=== PATIENT | male | born 1985 | race Caucasian/White ===

== ENCOUNTER 2021-02-14 14:15 | Emergency (ER) | payer BC ==
[2021-02-14] MEDS ORDERED: Diphtheria,Pertussis(Acell),Tetanus Vaccine 0.5 ML Syringe IM ONE (14:47)
--- NOTE | 2021-02-14 14:49 | EDM.PDOC ---
ED HPI GENERAL MEDICAL PROBLEM - General Chief Complaint: Laceration Stated Complaint: L INDEX FINGER LAC Time Seen by Provider: 02/14/21 14:38 Source of Information: Reports: Patient, RN Notes Reviewed History Limitations: Reports: No Limitations - History of Present Illness INITIAL COMMENTS - FREE TEXT/NARRATIVE: Patient is a 35-year-old male who presents to the ER for his left index finger laceration. States that he was using a hunting knife, and ended up lacerating the posterior aspect of the patient's left index PIP with the tip of his knife. This resulted in a roughly 5 mm laceration, that is barely noticeable until he bends his finger, and then it is just noticeable. Patient's bleeding is under control at the time of triage. States that he is out of date for his tetanus booster. Patient denies any other sick-like symptoms, fever/chills, cough/shortness of breath, nausea/vomiting/diarrhea. 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 ED EXAM, SKIN/RASH Exam: See Below Exam Limited By: No Limitations General Appearance: Alert, WD/WN, No Apparent Distress Respiratory/Chest: No Respiratory Distress, Lungs Clear, Normal Breath Sounds, No Accessory Muscle Use, Chest Non-Tender Cardiovascular: Normal Peripheral Pulses, Regular Rate, Rhythm, No Edema Peripheral Pulses: 2+: Radial (L), Radial (R) Extremities: Normal Inspection, Normal Range of Motion, Normal Capillary Refill Neurological: Alert, Oriented, Normal Cognition, No Motor/Sensory Deficits Psychiatric: Normal Affect, Normal Mood Skin: Warm, Dry, Normal Color, No Rash, Wound/Incision (5 mm linear wound to the patient's posterior PIP bleeding is under control at this time.) Course - Vital Signs Last Recorded V/S: Last Vital Signs Temp 97.4 F 02/14/21 14:39 Pulse 84 02/14/21 14:39 Resp 16 02/14/21 14:39 BP 122/89 02/14/21 14:39 Pulse Ox 98 02/14/21 14:39 - Orders/Labs/Meds Orders: Active Orders 24 hr Category Date Time Status Vaccine to be Administered/Admin Charge [RC] ASDIRECTED Care 02/14/21 14:47 Ordered Meds: Medications Discontinued Medications Generic Name Dose Route Start Last Admin Trade Name Harsha PRN Reason Stop Dose Admin Diphtheria/Tetanus/Acell Pertussis 0.5 ml 02/14/21 14:47 Diphtheria,Pertussis(Acell),Tetanus Vaccine 0.5 Ml Syringe IM 02/14/21 14:48 .ONCE ONE - Re-Assessments/Exams Free Text/Narrative Re-Assessment/Exam: 02/14/21 14:51 Wound was cleansed by triage nurse, and the patient's wound will not require closure by sutures, or otherwise as it will likely heal by itself. We will update his tetanus for today's purposes and discharge him home with general recommendations. Patient verbalized understanding of this plan. Departure - Departure Time of Disposition: 14:47 Disposition: Home, Self-Care 01 Condition: Good Clinical Impression: Need for Tdap vaccination Laceration of index finger Qualifiers: Encounter type: initial encounter Damage to nail status: without damage Foreign body presence: without foreign body Laterality: left Qualified Code(s): S61.211A - Laceration without foreign body of left index finger without damage to nail, initial encounter - Discharge Information *PRESCRIPTION DRUG MONITORING PROGRAM REVIEWED*: No *COPY OF PRESCRIPTION DRUG MONITORING REPORT IN PATIENT NADYA: No Instructions: Nonsutured Laceration Care Referrals: Vernon Romeo PA-C [Primary Care Provider] - Forms: ED Department Discharge Additional Instructions: You have been evaluated in the ED for your laceration. Your wound was small enough, that this did not require any sutures or other type of closure at today's visit. You were however out of date for your tetanus booster and this was updated for today's purposes. This should be good for period of roughly 10 years. Please keep this area clean and dry, you may cleanse with regular soap and water. No vigorous scrubbing. You may apply bacitracin to the wound bed, and put a Band-Aid over the area to provide further wound closure. Watch out for signs of infection like increased redness, swelling, pain at the laceration site, or if you should develop any fevers or chills. Please return to ED if your symptoms change or worsen. Thank you for allowing and choosing us to be involved in your healthcare needs. Sepsis Event Note (ED) - Evaluation Sepsis Screening Result: No Definite Risk - Focused Exam Vital Signs: Vital Signs Temp Pulse Resp BP Pulse Ox 02/14/21 14:39 97.4 F 84 16 122/89 98 - My Orders Last 24 Hours: My Active Orders 02/14/21 14:47 Vaccine to be Administered/Admin Charge [RC] ASDIRECTED - Assessment/Plan Last 24 Hours: My Active Orders 02/14/21 14:47 Vaccine to be Administered/Admin Charge [RC] ASDIRECTED
== END 2021-02-14 15:03 | disposition home or self-care (01) ==
LOC: JD.ED 14:15
DX: S61.211A Laceration without foreign body of left index finger without damage to nail, initial encounter (principal); Z23 Encounter for immunization; W26.0XXA Contact with knife, initial encounter
CPT/HCPCS: 90471; 90715; 99282

== ENCOUNTER 2021-05-02 16:07 | Emergency (ER) | payer BC | END 2021-05-02 18:31 | disposition home or self-care (01) | LOC: JD.ED 16:07 | DX: R03.0 Elevated blood-pressure reading, without diagnosis of hypertension (principal); Z79.899 Other long term (current) drug therapy | CPT/HCPCS: 36415; 71045; 71045-26; 80053; 83735; 84484; 85025; 93005; 93010; 99284-25; 99285 ==

== ENCOUNTER 2022-03-23 07:12 | Emergency (ER) | payer BC ==
[2022-03-23] MEDS ORDERED: Ondansetron 4 MG/2 ML SDV IVPUSH ONE (08:17)
[2022-03-23] MEDS ORDERED: Sodium Chloride 0.9% 10 ML Syringe FLUSH PRN ×2 (08:17→09:36)
[2022-03-23] MEDS ORDERED: Alum Hydrox/Mag Hydrox/Simeth 30 ML, Lidocaine 2% 15 ML PO ONE ×2 (08:19)
[2022-03-23] MEDS ORDERED: HYDROmorphone 0.5 MG/0.5 ML Syringe IVPUSH ONE (08:20)
[2022-03-23] MEDS ORDERED: Famotidine 20 MG/2 ML SDV IVPUSH ONE (08:26)
[2022-03-23 08:51] LABS: ESTIMATED GFR 73 mL/min (>60)
[2022-03-23] MEDS ORDERED: Iopamidol 612 MG/ML 100 ML Bottle IVPUSH ONE (09:36)
== END 2022-03-23 11:45 | disposition home or self-care (01) ==
LOC: JD.ED 07:12
DX: N20.0 Calculus of kidney (principal); K29.00 Acute gastritis without bleeding; R74.8 Abnormal levels of other serum enzymes; Z91.040 Latex allergy status; Z79.899 Other long term (current) drug therapy
CPT/HCPCS: 36415; 71045; 71045-26; 74177; 74177-26; 80053; 83690; 84484; 85025; 86140; 86308; 93005; 96374; 96375; 99284-25; A9270-GY; J1170; J2405; J3490; Q9967